=== PATIENT | female | born 1955 | race Caucasian/White ===

== ENCOUNTER 2018-05-17 13:59 | Emergency (ER) | payer BC ==
[~2018-05-17] VITALS: Ht 160 cm; Wt 73.5 kg
[~2018-05-17 13:59] MED LIST: ASP81EC PO; ATOR20TA PO; HYDR-3028; LORAPOW30; MEC25T PO; METOPROLOL; NAPR500T31; PANT1INJ3; SERT-275; [UNRECOGNIZED DRUG - CODE]
[2018-05-17 15:32] LABS: Basophils # (auto) 0 uL; Basophils % (auto) 0.4 % (0.0-2.0); Eosinophils # (auto) 0.2 uL; Eosinophils % (auto) 2.7 % (0.0-7.0); Hematocrit 48.6 % (36.0-46.0); Hemoglobin 16.3 g/dL (12.2-16.2); Lymphocytes # (auto) 2.5 uL; Mean Corpuscular Hemoglobin 30.5 pg (28.0-32.0); Mean Corpuscular Hgb Conc. 33.5 g/dL (32.0-36.0); Mean Corpuscular Volume 91.1 fL (80.0-100.0); Monocytes # (auto) 0.7 uL; Monocytes % (auto) 9.2 % (0.0-12.0); Neutrophils # (auto) 4.4 uL; Neutrophils % (auto) 55.7 % (37.0-80.0); Nucleated Red Blood Cells % 0.1 %; Platelet Count (auto) 325 10^3/uL (140-450); Red Blood Cells 5.33 10^6/uL (4.0-5.20); Red Cell Distribution Width 13.2 % (11.8-14.3); White Blood Cell 7.9 10^3/uL (4.4-10.8)
[2018-05-17 15:40] LABS: Albumin 4.1 g/dL (3.4-5.0); Anion Gap 6 (5-15); Blood Urea Nitrogen 11 mg/dL (7-18); Carbon Dioxide 29 mmol/L (21-32); Chloride 101 mmol/L (98-107); Glucose 92 mg/dL (74-106); Potassium 4.6 mmol/L (3.5-5.1); Sodium 136 mmol/L (136-145)
[2018-05-17 15:42] LABS: Urine Bacteria NONE SEEN /hpf (None Seen); Urine Blood Negative /uL (Negative); Urine Specific Gravity 1.005 (1.001-1.035); Urine WBC 4 /hpf (0 - 5)
[2018-05-17 15:45] LABS: Alanine Aminotransferase 28 U/L (13-56); Alkaline Phosphatase 93 U/L (45-117); Aspartate Aminotransferase 14 U/L (15-37); BUN/Creatinine Ratio 15.1; Bilirubin, Total 0.3 mg/dL (0.2-1.0); GFR African American 103 mL/min; GFR Non-African American 85 mL/min; Total Protein 7.7 g/dL (6.4-8.2)
[2018-05-17] MEDS ORDERED: MECLIZINE HCL 25 MG TAB PO ONE (17:45)
[2018-05-17 18:09] VITALS: BP 130/70
[2018-05-17] MEDS ORDERED: cefTRIAXone 1GM/50ML D5W 50 ML IV ONE (18:45)
[2018-05-17] MEDS ORDERED: HYDROcodone-ACET 5/325MG TAB PO ONE (18:45)
== END 2018-05-17 19:18 | disposition home or self-care (01) ==
LOC: ER 13:59
DX: N39.0 Urinary tract infection, site not specified (principal); G89.29 Other chronic pain; E78.5 Hyperlipidemia, unspecified; Z90.710 Acquired absence of both cervix and uterus
CPT/HCPCS: 36415; 80053; 81001; 84484; 85025; 93005; 99285; J0696; J8597

== ENCOUNTER 2019-05-12 11:15 | Emergency (ER) | payer MEDICARE ==
[~2019-05-12] VITALS: Ht 160 cm; Wt 74.8 kg
[2019-05-12] MEDS ORDERED: MECLIZINE HCL 25 MG TAB PO ONE (11:45)
[2019-05-12] MEDS ORDERED: SODIUM CHLORIDE 0.9% 500 ML IV ONE (11:45)
[2019-05-12 12:08] LABS: Urine Amorphous Crystal FEW /hpf (None Seen); Urine Bacteria NONE SEEN /hpf (None Seen); Urine Blood Negative /uL (Negative); Urine Specific Gravity 1.016 (1.001-1.035); Urine WBC 3 /hpf (0 - 5)
[2019-05-12 13:04] LABS: Basophils # (auto) 0 uL; Basophils % (auto) 0.8 % (0.0-2.0); Eosinophils # (auto) 0.2 uL; Eosinophils % (auto) 3.1 % (0.0-7.0); Hematocrit 46.3 % (36.0-46.0); Hemoglobin 15.4 g/dL (12.2-16.2); Lymphocytes # (auto) 2.4 uL; Lymphocytes % (auto) 41.7 % (10.0-50.0); Mean Corpuscular Hemoglobin 31.3 pg (28.0-32.0); Mean Corpuscular Hgb Conc. 33.3 g/dL (32.0-36.0); Mean Corpuscular Volume 94.2 fL (80.0-100.0); Monocytes # (auto) 0.5 uL; Neutrophils # (auto) 2.6 uL; Neutrophils % (auto) 46.4 % (37.0-80.0); Nucleated Red Blood Cells % 0.1 %; Platelet Count (auto) 235 10^3/uL (140-450); Red Blood Cells 4.92 10^6/uL (4.0-5.20); Red Cell Distribution Width 12.9 % (11.8-14.3); White Blood Cell 5.7 10^3/uL (4.4-10.8)
[2019-05-12 13:25] LABS: Alanine Aminotransferase 35 U/L (13-56); Albumin 3.9 g/dL (3.4-5.0); Anion Gap 6 (5-15); Aspartate Aminotransferase 22 U/L (15-37); Blood Urea Nitrogen 14 mg/dL (7-18); Calcium 8.7 mg/dL (8.5-10.1); Carbon Dioxide 29 mmol/L (21-32); Chloride 105 mmol/L (98-107); Glucose 93 mg/dL (74-106); Potassium 3.7 mmol/L (3.5-5.1); Sodium 140 mmol/L (136-145)
[2019-05-12 13:30] LABS: Alkaline Phosphatase 75 U/L (45-117); BUN/Creatinine Ratio 20.9; Bilirubin, Total 0.3 mg/dL (0.2-1.0); GFR African American 114 mL/min; GFR Non-African American 94 mL/min; Total Protein 7.3 g/dL (6.4-8.2)
[2019-05-12 14:03] VITALS: BP 140/72
== END 2019-05-12 14:22 | disposition home or self-care (01) ==
LOC: ER 11:22
DX: S09.90XA Unspecified injury of head, initial encounter (principal); R42 Dizziness and giddiness; E78.5 Hyperlipidemia, unspecified; I10 Essential (primary) hypertension; F12.90 Cannabis use, unspecified, uncomplicated; Z88.1 Allergy status to other antibiotic agents; Z88.2 Allergy status to sulfonamides; Z79.82 Long term (current) use of aspirin; Z79.899 Other long term (current) drug therapy; Z86.73 Personal history of transient ischemic attack (TIA), and cerebral infarction without residual deficits; Z90.710 Acquired absence of both cervix and uterus; W22.8XXA Striking against or struck by other objects, initial encounter; Y93.89 Activity, other specified; Y99.8 Other external cause status; Y92.89 Other specified places as the place of occurrence of the external cause
CPT/HCPCS: 36415; 70450; 80053; 81001; 84484; 85025; 93005; 94761; 96360; 99284; J7040; J8597

== ENCOUNTER 2020-05-06 10:37 | Inpatient (IN) | payer MEDICARE ==
[~2020-05-06] VITALS: Ht 162.6 cm; Wt 80.0 kg
[~2020-05-06 10:37] MED LIST changes: -ASP81EC PO; +ASPI-394 PO
[2020-05-06] MEDS ORDERED: SODIUM CHLORIDE 0.9% 500 ML IVB ONE (11:00)
[2020-05-06 11:36] LABS: Basophils # (auto) 0 10 ^3/uL (0-0.2); Basophils % (auto) 0.6 % (0.0-2.0); Eosinophils # (auto) 0.2 10 ^3/uL (0-0.8); Eosinophils % (auto) 2.8 % (0.0-7.0); Hematocrit 46.5 % (36.0-46.0); Hemoglobin 15.5 g/dL (12.2-16.2); Lymphocytes # (auto) 1.7 10 ^3/uL (0.4-5.4); Lymphocytes % (auto) 26.6 % (10.0-50.0); Mean Corpuscular Hemoglobin 31.1 pg (28.0-32.0); Mean Corpuscular Hgb Conc. 33.3 g/dL (32.0-36.0); Mean Corpuscular Volume 93.3 fL (80.0-100.0); Monocytes # (auto) 0.4 10 ^3/uL (0-1.3); Monocytes % (auto) 5.8 % (0.0-12.0); Neutrophils # (auto) 4.1 10 ^3/uL (1.6-8.6); Neutrophils % (auto) 64.2 % (37.0-80.0); Nucleated Red Blood Cells % 0.1 %; Platelet Count (auto) 212 10^3/uL (140-450); Red Blood Cells 4.98 10^6/uL (4.0-5.20); Red Cell Distribution Width 13.8 % (11.8-14.3); White Blood Cell 6.4 10^3/uL (4.4-10.8)
[2020-05-06 11:44] LABS: Alanine Aminotransferase 47 U/L (13-56); Albumin 3.8 g/dL (3.4-5.0); Anion Gap 6 (5-15); Blood Alcohol < 3.0 mg/dL (0-5); Blood Urea Nitrogen 22 mg/dL (7-18); Calcium 8.5 mg/dL (8.5-10.1); Carbon Dioxide 24 mmol/L (21-32); Chloride 107 mmol/L (98-107); Glucose 128 mg/dL (74-106); Potassium 3.7 mmol/L (3.5-5.1); Sodium 137 mmol/L (136-145)
[2020-05-06 11:46] LABS: Alkaline Phosphatase 66 U/L (45-117); Aspartate Aminotransferase 30 U/L (15-37); BUN/Creatinine Ratio 31.9; Bilirubin, Total 0.4 mg/dL (0.2-1.0); GFR African American 109 mL/min; GFR Non-African American 90 mL/min; Total Protein 6.8 g/dL (6.4-8.2)
[2020-05-06 11:53] LABS: Acetaminophen 35.4 ug/mL (10-30); Salicylate < 1.7 mg/dL (2.8-20.0)
[2020-05-06] MEDS ORDERED: MORPHINE SULF INJ 2 MG/ML SYRINGE 1ML IV PRN (12:45)
[2020-05-06] MEDS ORDERED: ACETYLCYSTEINE PO FOR APAP TOX 200 MG/ML ML PO ONE (12:45)
[2020-05-06] MEDS ORDERED: NITROGLYCERIN 0.4 MG SL TAB SL PRN (12:45)
[2020-05-06] MEDS: SODIUM CHLORIDE 0.9% 1,000 ML IV SCH ×2 (13:21→22:24)
[2020-05-06 14:07] LABS: Alanine Aminotransferase 41 U/L (13-56); Albumin 3.5 g/dL (3.4-5.0); Bilirubin, Direct < 0.1 mg/dL (0-0.2)
[2020-05-06 14:10] LABS: Alkaline Phosphatase 61 U/L (45-117); Aspartate Aminotransferase 25 U/L (15-37); Bilirubin, Total 0.3 mg/dL (0.2-1.0); Total Protein 6.3 g/dL (6.4-8.2)
[2020-05-06 17:04] VITALS: BP 148/79
[2020-05-06 17:16] VITALS: BP 148/79
[2020-05-06 17:23] VITALS: BP 148/79
[2020-05-06] MEDS ORDERED: PRAV20TA3 PO (17:24)
[2020-05-06] MEDS ORDERED: HYDR-4902 PO (17:24)
[2020-05-06] MEDS ORDERED: OXYB5TAB61 PO (17:24)
[2020-05-06] MEDS ORDERED: METO25TA36 PO (17:24)
[2020-05-06] MEDS ORDERED: SERT-376 PO (17:24)
--- NOTE | 2020-05-06 18:12 | NUR ---
Telemetry admit from ER EVAN LOZANO admitted to Telemetry unit after SBAR received. Patient oriented to Peter Noyola RN primary RN, unit, room, bed, and unit policies regarding patient care and visiting hours. Patient now on continuous telemetry monitoring, tele box # 34 and telemetry reading on arrival to unit is sinus rhythm 81.Sitter at bedside. Patient placed on bedside oxygen, weighed by bedscale and encouraged to call if they need something. All questions and concerns addressed. Bed locked in the lowest position, will continue for monitor.
[2020-05-06] MEDS: ACETYLCYSTEINE PO FOR APAP TOX 200 MG/ML ML PO SCH ×2 (18:53→22:00)
--- NOTE | 2020-05-06 20:00 | NUR ---
Opening Shift Note Assumed care of patient. Pt is A/O x4. No S/S of distress/SOB or pain at this time. Pt is on 4L nasal cannula with even and unlabored respirations. Sitter is at bedside for safety. Instructed on POC and to call for assist PRN. Bed locked, in lowest position, call light within reach, side rails up x2. Will continue to monitor for changes Q1hr and PRN.
[2020-05-06 22:00] VITALS: BP 120/78
--- NOTE | 2020-05-06 22:06 | NUR ---
Mucomyst held Acetaminophen level 4.7 @1805
[2020-05-07] MEDS: ACETYLCYSTEINE PO FOR APAP TOX 200 MG/ML ML PO SCH ×3 (02:00→10:00)
--- NOTE | 2020-05-07 02:00 | NUR ---
Hospitalist paged Pt has been vomiting and having nausea. New orders received
[2020-05-07] MEDS: ONDANSETRON HCL 4 MG/2 ML VIAL IV PRN ×3 (03:16→14:03)
[2020-05-07 05:00] VITALS: BP 154/74
[2020-05-07] MEDS: SODIUM CHLORIDE 0.9% 1,000 ML IV SCH (05:16)
--- NOTE | 2020-05-07 05:39 | NUR ---
Called Marcy in the lab inquiring about in house covid result. No swab was ever taken to the lab. Swab sent to [facility] and informed primary ISAEL Mckeon who will swab patient and walk to the lab.
--- NOTE | 2020-05-07 06:02 | NUR ---
In house COVID swab obtained. Walked up to lab
[2020-05-07 06:59] LABS: Basophils # (auto) 0 10 ^3/uL (0-0.2); Basophils % (auto) 0.3 % (0.0-2.0); Eosinophils # (auto) 0.1 10 ^3/uL (0-0.8); Eosinophils % (auto) 0.8 % (0.0-7.0); Hematocrit 42.5 % (36.0-46.0); Hemoglobin 14.1 g/dL (12.2-16.2); Lymphocytes # (auto) 1.1 10 ^3/uL (0.4-5.4); Mean Corpuscular Hemoglobin 30.9 pg (28.0-32.0); Mean Corpuscular Hgb Conc. 33.2 g/dL (32.0-36.0); Monocytes # (auto) 0.4 10 ^3/uL (0-1.3); Monocytes % (auto) 4.2 % (0.0-12.0); Neutrophils # (auto) 7.1 10 ^3/uL (1.6-8.6); Neutrophils % (auto) 81.7 % (37.0-80.0); Nucleated Red Blood Cells % 0.1 %; Platelet Count (auto) 197 10^3/uL (140-450); Red Blood Cells 4.57 10^6/uL (4.0-5.20); Red Cell Distribution Width 13.2 % (11.8-14.3); White Blood Cell 8.7 10^3/uL (4.4-10.8)
[2020-05-07 07:13] LABS: Albumin 3.6 g/dL (3.4-5.0); Calcium 8.3 mg/dL (8.5-10.1); Potassium 3.8 mmol/L (3.5-5.1)
[2020-05-07 07:15] LABS: BUN/Creatinine Ratio 29.5
[2020-05-07 07:18] LABS: Bilirubin, Total 0.5 mg/dL (0.2-1.0); Total Protein 6.6 g/dL (6.4-8.2)
[2020-05-07 09:00] VITALS: BP 141/65
[2020-05-07] MEDS ORDERED: ENOXAPARIN SOD 40 MG/0.4 ML SYRINGE SC SCH (10:00)
[2020-05-07 13:00] VITALS: BP 142/74
[2020-05-07] MEDS ORDERED: SERTRALINE HCL 50 MG TAB PO ONE (13:00)
[2020-05-07] MEDS: traMADol HCL 50 MG TAB PO PRN ×2 (14:03→20:17)
[2020-05-07 17:00] VITALS: BP 138/69
--- NOTE | 2020-05-07 18:30 | NUR ---
PT STATED SHE DID NOT WANT TO SET UP A PASSWORD, BUT THAT SHE DID WANT HER SON LIZZIE (ONLY) TO BE ABLE TO CALL FOR UPDATES. LIZZIE LOZANO .
[2020-05-07 19:00] LABS: Urine Bacteria NONE SEEN /hpf (None Seen); Urine Blood Negative /uL (Negative); Urine Specific Gravity 1.004 (1.001-1.035); Urine WBC 1 /hpf (0 - 5)
[2020-05-07 19:08] LABS: Amphetamine Screen, Urine NEGATIVE (NEGATIVE); Barbiturate Scree,Urine NEGATIVE (NEGATIVE); Benzodiazephine Screen, Urine NEGATIVE (NEGATIVE); Cannabinoid Screen, Urine POSITIVE (NEGATIVE); Cocaine Screen, Urine NEGATIVE (NEGATIVE); Opiate Scree,Urine NEGATIVE (NEGATIVE); Phencyclidine Screen, Urine NEGATIVE (NEGATIVE)
[2020-05-07] MEDS ORDERED: PANTOPRAZOLE 40 MG TAB PO ONE (21:45)
[2020-05-07 22:00] VITALS: BP 141/81
--- NOTE | 2020-05-07 23:43 | NUR ---
SITTER AT BEDSIDE R/T SI, OD, AND ALOC UPON ADMISSION. Addendum: 05/07/20 at 2344 by LAUREN NEIL RN Amended: Links added.
[2020-05-08 05:00] VITALS: BP 139/78
--- NOTE | 2020-05-08 07:07 | NUR ---
CALLED TELE PSYCH R/T NO REPORT HAS BEEN RECEIVED YET. SPOKE WITH YARON AND HE IS FAXING REPORT NOW.
--- NOTE | 2020-05-08 07:30 | NUR ---
FAXED REPORT RECEIVED AND 5150 HOLD HAS BEEN RECOMMENDED. REPORT GIVEN TO LIZA MOYER RN .
[2020-05-08] MEDS: PANTOPRAZOLE 40 MG TAB PO SCH (08:53)
[2020-05-08] MEDS: traMADol HCL 50 MG TAB PO PRN ×3 (08:54→21:35)
[2020-05-08] MEDS: SERTRALINE HCL 50 MG TAB PO SCH (08:54)
[2020-05-08 09:00] VITALS: BP 148/74
--- NOTE | 2020-05-08 11:36 | NUR ---
md newman rounded on patient made aware of tele psych recommending 5150 hold, general house worker also aware
[2020-05-08 13:00] VITALS: BP 140/80
[2020-05-08] MEDS: LACTULOSE 20Gm/30ML SOLN PO PRN ×2 (16:17→21:35)
[2020-05-08 17:00] VITALS: BP 144/82
--- NOTE | 2020-05-08 17:42 | NUR ---
PAGED MD BROWN REGARDING CONTINUATION OF HOME MEDS AWAITING CALL BACK
--- NOTE | 2020-05-08 17:49 | NUR ---
SPOKE WITH MD BROWN REVIEWED HOME MEDICATIONS LISTED WITH HE CONTINUED METOPROLOL, PER PT REQUEST, ALSO INQUIRED WHEN 5150 WILL BE SIGNED I INFORMED HIM PER [facility] NEUROPSYCHOLOGIST SOMEONE WILL BE HERE TONIGHT TO SIGN IT
[2020-05-08] MEDS ORDERED: METOPROLOL SUCCINATE XL 50 MG TAB PO ONE (18:00)
[2020-05-08 21:02] VITALS: BP 136/60
[2020-05-09 05:03] VITALS: BP 130/73
[2020-05-09 08:32] VITALS: BP 137/71
[2020-05-09] MEDS: PANTOPRAZOLE 40 MG TAB PO SCH (10:00)
[2020-05-09] MEDS: SERTRALINE HCL 50 MG TAB PO SCH (10:00)
[2020-05-09] MEDS: METOPROLOL SUCCINATE XL 50 MG TAB PO SCH (10:00)
[2020-05-09 12:32] VITALS: BP 123/78
--- NOTE | 2020-05-09 12:34 | NUR ---
Nutrition Assessment Notes please see attached link for complete assessment Est energy needs [id number] kcal (23-25 kcal/kg ABW) Est protein needs: 67-73g (1-1.1g/kg ABW) WIll reassess prn. Addendum: 05/09/20 at [address] Amended: Links added.
[2020-05-09] MEDS: traMADol HCL 50 MG TAB PO PRN ×2 (12:38→20:53)
[2020-05-09 16:50] VITALS: BP 131/79
--- NOTE | 2020-05-09 19:15 | NUR ---
Opening Shift Note Assumed care of patient from Lu, awake and alert. No S/S of distress/SOB or pain. Instructed on POC and to call for assist PRN, will continue to monitor for changes Q1hr and PRN.
[2020-05-09 22:00] VITALS: BP 155/87
[2020-05-10] MEDS: traMADol HCL 50 MG TAB PO PRN (02:48)
[2020-05-10 04:56] VITALS: BP 128/68
[2020-05-10 08:30] VITALS: BP 150/74
[2020-05-10] MEDS: PANTOPRAZOLE 40 MG TAB PO SCH (09:43)
[2020-05-10] MEDS: METOPROLOL SUCCINATE XL 50 MG TAB PO SCH (09:43)
[2020-05-10] MEDS: SERTRALINE HCL 50 MG TAB PO SCH (09:43)
--- NOTE | 2020-05-10 11:05 | NUR ---
assessment Patient is a 64 year old female who is alert and oriented. Patients cognitive abilities are intact. Prior to admission patient lived home alone and functioned independently. Patient has a consult for dc planning and drug od. Patient informed me she is going through a bad divorce and has lots of pain issues. Patient informed me she felt tired and was tired of dealing with everything that was on her plate. Patient informed me at that time she took a handful of [place] trying to make everything go away. Patient informed me she regrets taking the pills and does not feel like she wants to . I informed patient she has a ss consult for psych placement. Patient wants to leave AMA. I informed patient if she leave we will call SO and report she left the hospital against medical advise. Patient informed me she called her chalk molding machine operator and was told we cannot hold her. I informed her that was true, but we will still call SO. Patient agreed. I provided patient with resources for therapist in the area, Crisis center and behavioral health. I also provided patient with [facility] resource. Patient accepted all resources and informed me she wants to do better. I informed patient she has a right to speak to a social media director regarding all care. I informed patient she has a right to participate in any and all discharge planning. Patient does not have a POA and advanced directive. I have offered patient information on POA and advanced directives. I informed the patient the advantages and benefits of having an Advanced Directive. Patient verbalized understanding and agreed to discharge plan. Addendum: 05/10/20 at 1530 by Nini FROST Amended: Links added.
--- NOTE | 2020-05-10 11:55 | NUR ---
Left AMA Patient left AMA. She was taken to main entrance in a wheelchair where she left in a private vehicle with all personal belongings. ID bands were removed. IV was removed intact, no problems.
--- NOTE | 2020-05-10 12:25 | NUR ---
Contacted senior construction manager dept per protocol and notified them of the patient leaving AMA. No address on file, only a PO box. They said they would look it up.
--- NOTE | 2020-05-11 12:00 | NUR ---
Pt wants to leave AMA She spoke with Nini Gary in who said she would provide the patient with information and that she has very good insurance. She answered all questions and talked at length with the patient. Dr. Arias also went in and saw the patient and talked with her. After this, the patient decided she still wants to leave AMA and said she wants to get help and get on a new antidepressant. She said she no longer feels like committing suicide and can hardly believe she did it in the first place. She said she felt overwhelmed by going through a divorce and everyone taking her 's side and also dealing with pain and medical issues on top of it. This nurse was informed that we cannot hold the patient here at the hospital as we are not a psych hospital. Addendum: 05/11/20 at 1405 by CHRIS PADILLA RN Wrong time entered. This was originally entered on the wrong patient by accident. This note should have been timed for 1100.
== END 2020-05-10 11:50 | disposition left against medical advice (07) | DRG 918 ==
LOC: EDBD 10:37 → ER 10:37 → TELE 10:38 → TELE-CENTR 17:06 → CENTRAL 05-07 17:05
PROVIDERS: ADMIT Internal Medicine; ATTEND Internal Medicine
DX: T39.1X2A Poisoning by 4-Aminophenol derivatives, intentional self-harm, initial encounter (principal); T43.222A Poisoning by selective serotonin reuptake inhibitors, intentional self-harm, initial encounter; T40.2X2A Poisoning by other opioids, intentional self-harm, initial encounter; F32.9 Major depressive disorder, single episode, unspecified; E78.5 Hyperlipidemia, unspecified; E66.9 Obesity, unspecified; I10 Essential (primary) hypertension; Z53.29 Procedure and treatment not carried out because of patient's decision for other reasons; Z20.828 Contact with and (suspected) exposure to other viral communicable diseases; S42.002A Fracture of unspecified part of left clavicle, initial encounter for closed fracture; Z86.73 Personal history of transient ischemic attack (TIA), and cerebral infarction without residual deficits; Z68.30 Body mass index [BMI] 30.0-30.9, adult; Z88.1 Allergy status to other antibiotic agents; Z88.2 Allergy status to sulfonamides; Z88.8 Allergy status to other drugs, medicaments and biological substances; X83.8XXA Intentional self-harm by other specified means, initial encounter; Y93.89 Activity, other specified; Y92.89 Other specified places as the place of occurrence of the external cause; Y99.8 Other external cause status; Z80.51 Family history of malignant neoplasm of kidney; Z90.710 Acquired absence of both cervix and uterus; Z85.9 Personal history of malignant neoplasm, unspecified; F12.90 Cannabis use, unspecified, uncomplicated
CPT/HCPCS: 36415; 71045; 80053; 80076; 80307; 80320; 80329; 81001; 85025; 87426; 93005; 96361; 96374; 99291; G0378; J2405

== ENCOUNTER 2020-12-31 22:11 | Emergency (ER) | payer MEDICARE ==
[~2020-12-31] VITALS: Ht 162.6 cm; Wt 77.1 kg
[~2020-12-31 22:11] MED LIST changes: -ATOR20TA PO; -HYDR-3028; +HYDR-4902 PO; -LORAPOW30; +METO25TA36 PO; -METOPROLOL; -NAPR500T31; +OXYB5TAB61 PO; -PANT1INJ3; +PRAV20TA3 PO; -SERT-275; +SERT-376 PO; -[UNRECOGNIZED DRUG - CODE]
[2020-12-31 22:27] VITALS: BP 138/74
== END 2020-12-31 23:22 | disposition left against medical advice (07) ==
LOC: ER 22:11 → EDBD 22:11 → ER 23:22
DX: K62.5 Hemorrhage of anus and rectum (principal); Z53.21 Procedure and treatment not carried out due to patient leaving prior to being seen by health care provider

== ENCOUNTER 2023-01-30 17:54 | Emergency (ER) | payer MEDICARE ==
[~2023-01-30] VITALS: Ht 162.6 cm; Wt 75.3 kg
[~2023-01-30 17:54] MED LIST changes: +OXYB5TAB10 PO; -OXYB5TAB61 PO
[2023-01-30 18:56] LABS: Basophils # (auto) 0.1 10 ^3/uL (0-0.2); Basophils % (auto) 0.9 % (0.0-2.0); Eosinophils % (auto) 13.3 % (0.0-7.0); Hemoglobin 14.5 g/dL (12.2-16.2); Lymphocytes # (auto) 2.1 10 ^3/uL (0.4-5.4); Lymphocytes % (auto) 26.8 % (10.0-50.0); Mean Corpuscular Hgb Conc. 33.7 g/dL (32.0-36.0); Mean Corpuscular Volume 95.1 fL (80.0-100.0); Monocytes # (auto) 0.6 10 ^3/uL (0-1.3); Monocytes % (auto) 8.3 % (0.0-12.0); Neutrophils # (auto) 3.9 10 ^3/uL (1.6-8.6); Neutrophils % (auto) 50.7 % (37.0-80.0); Red Blood Cells 4.52 10^6/uL (4.0-5.20); Red Cell Distribution Width 12.7 % (11.8-14.3); White Blood Cell 7.7 10^3/uL (4.4-10.8)
[2023-01-30 19:13] LABS: Albumin 3.6 g/dL (3.4-5.0); Calcium 9.3 mg/dL (8.5-10.1); Potassium 4.2 mmol/L (3.5-5.1)
[2023-01-30 19:16] LABS: BUN/Creatinine Ratio 20.5 (10.0-20.0)
[2023-01-30 19:19] LABS: Bilirubin, Total 0.3 mg/dL (0.2-1.0)
[2023-01-30] MEDS ORDERED: ALBUTEROL SULF 2.5 MG/0.5ML(0.5%) NEB SOLN NEB ONE ×2 (20:00→21:30)
[2023-01-30] MEDS ORDERED: DexAMETHasone SOD PHOS 10MG/1ML VIAL INJ IM ONE (20:00)
[2023-01-30] MEDS ORDERED: IPRATROPIUM BROM 0.5 MG/2.5ML INH SOL NEB ONE ×2 (20:00→21:30)
[2023-01-30] MEDS ORDERED: IPRATROPIUM BROM 0.5 MG/2.5ML INH SOL ONE (20:08)
[2023-01-30] MEDS ORDERED: ALBUTEROL SULF 2.5 MG/0.5ML(0.5%) NEB SOLN ONE (20:08)
[2023-01-30 21:10] LABS: Urine Bacteria NONE SEEN /hpf (None Seen); Urine Blood Negative /uL (Negative); Urine Mucus FEW (None Seen); Urine Specific Gravity 1.026 (1.001-1.035); Urine WBC 5 /hpf (0 - 5)
[2023-01-30] MEDS ORDERED: DOXYCYCLINE 100MG/250ML 250 ML IV ONE (21:15)
[2023-01-30] MEDS ORDERED: DexAMETHasone SOD PHOS 10MG/1ML VIAL INJ IV ONE (21:15)
[2023-01-30] MEDS ORDERED: BUDESONIDE (INHALATION) 0.5 MG/2 ML NEB NEB ONE (21:30)
[2023-01-30] MEDS ORDERED: ALBUAER3 IN (23:43)
[2023-01-30] MEDS ORDERED: METH4PAK PO (23:43)
[2023-01-30] MEDS ORDERED: DOXY1CAP57 PO (23:43)
[2023-01-31 00:10] VITALS: BP 133/74
== END 2023-01-31 00:44 | disposition home or self-care (01) ==
LOC: ER 17:54
DX: J20.9 Acute bronchitis, unspecified (principal); J18.9 Pneumonia, unspecified organism; E78.5 Hyperlipidemia, unspecified; I10 Essential (primary) hypertension; F12.10 Cannabis abuse, uncomplicated; Z90.710 Acquired absence of both cervix and uterus; Z86.73 Personal history of transient ischemic attack (TIA), and cerebral infarction without residual deficits
CPT/HCPCS: 36415; 71046; 80053; 81001; 85025; 93005; 94640; 96365; 96375; 99285; J1100; J3490; J7644

== ENCOUNTER 2023-02-14 11:13 | Inpatient (IN) | payer MEDICARE ==
[~2023-02-14] VITALS: Ht 162.6 cm; Wt 84.6 kg
[~2023-02-14 11:13] MED LIST changes: +ALBUAER3 IN; +DOXY1CAP57 PO; +METH4PAK PO
[2023-02-14] MEDS ORDERED: ALBUTEROL SULF 2.5 MG/0.5ML(0.5%) NEB SOLN NEB ONE (11:45)
[2023-02-14] MEDS ORDERED: methylPREDNISolone SOD SUCC 40 MG/ML VL IV ONE (11:45)
[2023-02-14] MEDS ORDERED: IPRATROPIUM BROM 0.5 MG/2.5ML INH SOL NEB ONE (11:45)
[2023-02-14 12:19] LABS: Basophils # (auto) 0 10 ^3/uL (0-0.2); Basophils % (auto) 0.6 % (0.0-2.0); Eosinophils # (auto) 0.5 10 ^3/uL (0-0.8); Eosinophils % (auto) 6.8 % (0.0-7.0); Hematocrit 44.7 % (36.0-46.0); Hemoglobin 14.8 g/dL (12.2-16.2); Lymphocytes % (auto) 28.3 % (10.0-50.0); Mean Corpuscular Hemoglobin 31.5 pg (28.0-32.0); Mean Corpuscular Volume 95.4 fL (80.0-100.0); Monocytes # (auto) 0.4 10 ^3/uL (0-1.3); Monocytes % (auto) 6.3 % (0.0-12.0); Nucleated Red Blood Cells % 0.1 %; Red Blood Cells 4.69 10^6/uL (4.0-5.20); Red Cell Distribution Width 12.8 % (11.8-14.3); White Blood Cell 6.9 10^3/uL (4.4-10.8)
[2023-02-14 12:27] LABS: Albumin 3.9 g/dL (3.4-5.0); Calcium 9.2 mg/dL (8.5-10.1); Potassium 4.4 mmol/L (3.5-5.1)
[2023-02-14 12:31] LABS: BUN/Creatinine Ratio 18.6 (10.0-20.0); Bilirubin, Total 0.4 mg/dL (0.2-1.0); Total Protein 6.9 g/dL (6.4-8.2)
[2023-02-14 13:08] LABS: Urine Bacteria NONE SEEN /hpf (None Seen); Urine Blood Negative /uL (Negative); Urine Specific Gravity 1.004 (1.001-1.035); Urine WBC 1 /hpf (0 - 5)
[2023-02-14] MEDS ORDERED: ALBUTEROL SULF 2.5 MG/0.5ML(0.5%) NEB SOLN NEB PRN (15:45)
[2023-02-14 16:13] VITALS: BP 152/82; PULSE 80; RESP 20; O2SAT 92
[2023-02-14] MEDS: IPRATROPIUM BROM 0.5 MG/2.5ML INH SOL NEB SCH ×2 (18:00→22:38)
[2023-02-14] MEDS: ALBUTEROL SULF 2.5 MG/0.5ML(0.5%) NEB SOLN NEB SCH ×2 (18:00→22:38)
[2023-02-14] MEDS ORDERED: OXYBUTYNIN CHL 5 MG TAB PO SCH (18:00)
[2023-02-14 21:19] VITALS: PULSE 94; RESP 20; O2SAT 94
[2023-02-14] MEDS: OXYBUTYNIN CHL 5 MG TAB PO SCH (21:22)
[2023-02-14] MEDS: PRAVASTATIN SODIUM 20 MG TAB PO SCH (21:25)
[2023-02-14] MEDS: MECLIZINE HCL 25 MG TAB PO SCH (21:25)
[2023-02-14] MEDS: methylPREDNISolone SOD SUCC 40 MG/ML VL IV SCH (21:25)
[2023-02-14 22:20] VITALS: PULSE 91; RESP 18; O2SAT 93
[2023-02-14 22:30] VITALS: PULSE 86; RESP 18; O2SAT 99
[2023-02-15] VITALS (17 sets, daily range): BP systolic 108–149; BP diastolic 63–74; PULSE 71–99; RESP 16–20; TEMP 97.9–98.4; O2SAT 92–100
[2023-02-15] MEDS: SODIUM CHLORIDE 0.9% 1,000 ML IV SCH ×3 (00:55→15:21)
[2023-02-15] MEDS: ACETAMINOPHEN 325 MG TAB PO PRN ×2 (02:35→17:35)
[2023-02-15] MEDS: IPRATROPIUM BROM 0.5 MG/2.5ML INH SOL NEB SCH ×6 (02:40→23:19)
[2023-02-15] MEDS: ALBUTEROL SULF 2.5 MG/0.5ML(0.5%) NEB SOLN NEB SCH ×6 (02:40→23:19)
[2023-02-15] MEDS ORDERED: CITA10TA5 PO (03:06)
[2023-02-15] MEDS ORDERED: ACET500T58 PO (03:06)
[2023-02-15] MEDS ORDERED: ATOR10TA52 PO (03:06)
[2023-02-15 05:55] LABS: Basophils # (auto) 0 10 ^3/uL (0-0.2); Basophils % (auto) 0.1 % (0.0-2.0); Eosinophils # (auto) 0 10 ^3/uL (0-0.8); Hematocrit 40.6 % (36.0-46.0); Hemoglobin 13.6 g/dL (12.2-16.2); Lymphocytes # (auto) 1.3 10 ^3/uL (0.4-5.4); Lymphocytes % (auto) 11.5 % (10.0-50.0); Mean Corpuscular Hemoglobin 32.2 pg (28.0-32.0); Mean Corpuscular Hgb Conc. 33.5 g/dL (32.0-36.0); Monocytes # (auto) 0.1 10 ^3/uL (0-1.3); Monocytes % (auto) 1.1 % (0.0-12.0); Neutrophils # (auto) 9.9 10 ^3/uL (1.6-8.6); Neutrophils % (auto) 87.3 % (37.0-80.0); Red Blood Cells 4.23 10^6/uL (4.0-5.20); Red Cell Distribution Width 12.8 % (11.8-14.3); White Blood Cell 11.3 10^3/uL (4.4-10.8)
[2023-02-15 06:09] LABS: Potassium 3.9 mmol/L (3.5-5.1)
[2023-02-15 06:18] LABS: Albumin 3.5 g/dL (3.4-5.0); Bilirubin, Total 0.3 mg/dL (0.2-1.0); Total Protein 6.3 g/dL (6.4-8.2)
[2023-02-15] MEDS: SERTRALINE HCL 50 MG TAB PO SCH (09:22)
[2023-02-15] MEDS: ASPirin-EC 81 mg tab PO SCH (09:22)
[2023-02-15] MEDS: methylPREDNISolone SOD SUCC 40 MG/ML VL IV SCH ×2 (09:22→21:42)
[2023-02-15] MEDS: MECLIZINE HCL 25 MG TAB PO SCH ×2 (09:22→21:41)
[2023-02-15] MEDS: OXYBUTYNIN CHL 5 MG TAB PO SCH ×2 (09:23→09:25)
[2023-02-15] MEDS: METOPROLOL SUCCINATE XL 50 MG TAB PO SCH (09:23)
[2023-02-15] MEDS: DOXYCYCLINE 100MG/250ML 250 ML IV SCH (17:29)
[2023-02-15] MEDS: PRAVASTATIN SODIUM 20 MG TAB PO SCH (21:41)
[2023-02-16] VITALS (18 sets, daily range): BP systolic 119–148; BP diastolic 70–80; PULSE 72–95; RESP 16–20; TEMP 97.8–98.5; O2SAT 89–100
[2023-02-16] MEDS: IPRATROPIUM BROM 0.5 MG/2.5ML INH SOL NEB SCH ×6 (01:46→22:55)
[2023-02-16] MEDS: ALBUTEROL SULF 2.5 MG/0.5ML(0.5%) NEB SOLN NEB SCH ×6 (01:46→22:55)
[2023-02-16] MEDS: DOXYCYCLINE 100MG/250ML 250 ML IV SCH ×2 (05:18→17:01)
[2023-02-16 06:22] LABS: Basophils # (auto) 0 10 ^3/uL (0-0.2); Basophils % (auto) 0.1 % (0.0-2.0); Eosinophils # (auto) 0 10 ^3/uL (0-0.8); Hematocrit 39.3 % (36.0-46.0); Hemoglobin 13.2 g/dL (12.2-16.2); Lymphocytes # (auto) 1.3 10 ^3/uL (0.4-5.4); Mean Corpuscular Hemoglobin 31.8 pg (28.0-32.0); Mean Corpuscular Hgb Conc. 33.5 g/dL (32.0-36.0); Monocytes # (auto) 0.4 10 ^3/uL (0-1.3); Monocytes % (auto) 2.9 % (0.0-12.0); Nucleated Red Blood Cells % 0.1 %; Red Blood Cells 4.14 10^6/uL (4.0-5.20); Red Cell Distribution Width 13.2 % (11.8-14.3); White Blood Cell 14.8 10^3/uL (4.4-10.8)
[2023-02-16 06:32] LABS: Albumin 3.3 g/dL (3.4-5.0); Calcium 8.7 mg/dL (8.5-10.1); Magnesium 2.8 mg/dL (1.6-2.6); Potassium 3.9 mmol/L (3.5-5.1)
[2023-02-16 06:35] LABS: BUN/Creatinine Ratio 22.5 (10.0-20.0); Bilirubin, Total 0.3 mg/dL (0.2-1.0); Total Protein 6.3 g/dL (6.4-8.2)
[2023-02-16] MEDS: ACETAMINOPHEN 325 MG TAB PO PRN ×2 (08:28→17:00)
[2023-02-16] MEDS ORDERED: FUROSEMIDE 20 MG TAB PO SCH (10:00)
[2023-02-16] MEDS: methylPREDNISolone SOD SUCC 40 MG/ML VL IV SCH ×2 (10:45→22:02)
[2023-02-16] MEDS: FUROSEMIDE 20 MG/2 ML VIAL IV SCH (10:45)
[2023-02-16] MEDS: SERTRALINE HCL 50 MG TAB PO SCH (10:46)
[2023-02-16] MEDS: ASPirin-EC 81 mg tab PO SCH (10:46)
[2023-02-16] MEDS: METOPROLOL SUCCINATE XL 50 MG TAB PO SCH (10:46)
[2023-02-16] MEDS: OXYBUTYNIN CHL 5 MG TAB PO SCH (10:46)
[2023-02-16] MEDS: MECLIZINE HCL 25 MG TAB PO SCH ×2 (10:47→22:02)
[2023-02-16] MEDS: PRAVASTATIN SODIUM 20 MG TAB PO SCH (22:02)
[2023-02-17] VITALS (18 sets, daily range): BP systolic 125–140; BP diastolic 66–92; PULSE 71–92; RESP 14–19; TEMP 97.5–98.7; O2SAT 92–98
[2023-02-17] MEDS: ALBUTEROL SULF 2.5 MG/0.5ML(0.5%) NEB SOLN NEB SCH ×6 (02:42→22:19)
[2023-02-17] MEDS: IPRATROPIUM BROM 0.5 MG/2.5ML INH SOL NEB SCH ×6 (02:42→22:19)
[2023-02-17] MEDS: ACETAMINOPHEN 325 MG TAB PO PRN ×2 (04:22→21:18)
[2023-02-17] MEDS: DOXYCYCLINE 100MG/250ML 250 ML IV SCH ×2 (06:12→17:30)
[2023-02-17 07:47] LABS: Basophils # (auto) 0 10 ^3/uL (0-0.2); Basophils % (auto) 0.1 % (0.0-2.0); Eosinophils # (auto) 0 10 ^3/uL (0-0.8); Hematocrit 43.1 % (36.0-46.0); Hemoglobin 14.4 g/dL (12.2-16.2); Lymphocytes # (auto) 1.4 10 ^3/uL (0.4-5.4); Lymphocytes % (auto) 12.1 % (10.0-50.0); Mean Corpuscular Hemoglobin 31.7 pg (28.0-32.0); Mean Corpuscular Hgb Conc. 33.3 g/dL (32.0-36.0); Mean Corpuscular Volume 95.2 fL (80.0-100.0); Monocytes # (auto) 0.5 10 ^3/uL (0-1.3); Monocytes % (auto) 4.3 % (0.0-12.0); Neutrophils # (auto) 9.7 10 ^3/uL (1.6-8.6); Neutrophils % (auto) 83.5 % (37.0-80.0); Red Blood Cells 4.53 10^6/uL (4.0-5.20); Red Cell Distribution Width 13.3 % (11.8-14.3); White Blood Cell 11.6 10^3/uL (4.4-10.8)
[2023-02-17 08:00] LABS: Albumin 3.5 g/dL (3.4-5.0); Calcium 8.9 mg/dL (8.5-10.1); Potassium 4.2 mmol/L (3.5-5.1)
[2023-02-17 08:04] LABS: BUN/Creatinine Ratio 22.4 (10.0-20.0); Bilirubin, Total 0.4 mg/dL (0.2-1.0); Total Protein 6.6 g/dL (6.4-8.2)
[2023-02-17] MEDS: OXYBUTYNIN CHL 5 MG TAB PO SCH (09:45)
[2023-02-17] MEDS: methylPREDNISolone SOD SUCC 40 MG/ML VL IV SCH ×2 (09:47→21:18)
[2023-02-17] MEDS: FUROSEMIDE 20 MG/2 ML VIAL IV SCH (09:47)
[2023-02-17] MEDS: MECLIZINE HCL 25 MG TAB PO SCH ×2 (09:47→21:17)
[2023-02-17] MEDS: ASPirin-EC 81 mg tab PO SCH (09:47)
[2023-02-17] MEDS: METOPROLOL SUCCINATE XL 50 MG TAB PO SCH (09:47)
[2023-02-17] MEDS: SERTRALINE HCL 50 MG TAB PO SCH (09:47)
[2023-02-17] MEDS ORDERED: METO-6 PO (13:20)
[2023-02-17] MEDS ORDERED: IPR002IS NEB (13:20)
[2023-02-17] MEDS ORDERED: PRED20TA2 PO (13:20)
[2023-02-17] MEDS ORDERED: FURO1TAB33 PO (13:20)
[2023-02-17] MEDS ORDERED: ALB5IS NEB (13:20)
[2023-02-17] MEDS ORDERED: ASPI-543 PO (13:20)
[2023-02-17] MEDS ORDERED: DOXY100C4 PO (13:20)
[2023-02-17] MEDS ORDERED: OXYB5TAB10 PO (13:20)
[2023-02-17] MEDS: PRAVASTATIN SODIUM 20 MG TAB PO SCH (21:17)
[2023-02-18] VITALS (8 sets, daily range): BP systolic 113–136; BP diastolic 59–91; PULSE 63–99; RESP 16–20; TEMP 97.7–97.8; O2SAT 91–99
[2023-02-18] MEDS: IPRATROPIUM BROM 0.5 MG/2.5ML INH SOL NEB SCH ×3 (01:58→10:00)
[2023-02-18] MEDS: ALBUTEROL SULF 2.5 MG/0.5ML(0.5%) NEB SOLN NEB SCH ×3 (01:58→10:00)
[2023-02-18] MEDS: ACETAMINOPHEN 325 MG TAB PO PRN (04:47)
[2023-02-18] MEDS: DOXYCYCLINE 100MG/250ML 250 ML IV SCH (04:59)
[2023-02-18] MEDS: OXYBUTYNIN CHL 5 MG TAB PO SCH (09:46)
[2023-02-18] MEDS: SERTRALINE HCL 50 MG TAB PO SCH (09:46)
[2023-02-18] MEDS: ASPirin-EC 81 mg tab PO SCH (09:46)
[2023-02-18] MEDS: MECLIZINE HCL 25 MG TAB PO SCH (09:46)
[2023-02-18] MEDS: METOPROLOL SUCCINATE XL 50 MG TAB PO SCH (09:47)
[2023-02-18] MEDS: methylPREDNISolone SOD SUCC 40 MG/ML VL IV SCH (09:49)
[2023-02-18] MEDS: FUROSEMIDE 20 MG/2 ML VIAL IV SCH (09:53)
== END 2023-02-18 15:30 | disposition home or self-care (01) | DRG 193 ==
LOC: ER 11:13 → OVERFLOW 15:41 → WEST WING 23:35
PROVIDERS: ADMIT Internal Medicine
DX: J18.0 Bronchopneumonia, unspecified organism (principal); I50.31 Acute diastolic (congestive) heart failure; J96.01 Acute respiratory failure with hypoxia; J98.11 Atelectasis; Z68.32 Body mass index [BMI] 32.0-32.9, adult; E66.9 Obesity, unspecified; F32.A Depression, unspecified; I11.0 Hypertensive heart disease with heart failure; E78.5 Hyperlipidemia, unspecified; I27.20 Pulmonary hypertension, unspecified; Z80.51 Family history of malignant neoplasm of kidney; Z86.73 Personal history of transient ischemic attack (TIA), and cerebral infarction without residual deficits; Z87.01 Personal history of pneumonia (recurrent); Z88.1 Allergy status to other antibiotic agents; Z90.710 Acquired absence of both cervix and uterus; Z88.2 Allergy status to sulfonamides; Z88.8 Allergy status to other drugs, medicaments and biological substances
CPT/HCPCS: 36415; 36600; 71045; 71250; 80053; 81001; 82805; 83036; 83605; 83735; 83880; 84439; 84443; 84484; 85025; 85379; 93005; 93306; 94640; 96374; G0378; J3490

== ENCOUNTER 2023-07-05 14:21 | Emergency (ER) | payer MEDICARE ==
[~2023-07-05] VITALS: Ht 162.6 cm; Wt 77.2 kg
[~2023-07-05 14:21] MED LIST changes: +ALB5IS NEB; -ALBUAER3 IN; -ASPI-394 PO; +ASPI-543 PO; +ATOR10TA52 PO; +CITA10TA5 PO; +DOXY100C4 PO; -DOXY1CAP57 PO; +FURO1TAB33 PO; -HYDR-4902 PO; +IPR002IS NEB; -MEC25T PO; -METH4PAK PO; +METO-6 PO; -METO25TA36 PO; -PRAV20TA3 PO; +PRED20TA2 PO; -SERT-376 PO
[2023-07-05] MEDS ORDERED: HYDROcodone-ACET 10/325MG TAB PO ONE (15:15)
[2023-07-05] MEDS ORDERED: ZOFR4T PO (15:35)
[2023-07-05] MEDS ORDERED: ACE3T PO (15:35)
[2023-07-05] MEDS ORDERED: MECL1TAB42 PO (15:35)
[2023-07-05 17:06] VITALS: BP 103/73; PULSE 55; RESP 16; O2SAT 95
== END 2023-07-05 17:11 | disposition home or self-care (01) ==
LOC: ER 14:21
DX: S06.0X0A Concussion without loss of consciousness, initial encounter (principal); I10 Essential (primary) hypertension; E78.5 Hyperlipidemia, unspecified; Z86.73 Personal history of transient ischemic attack (TIA), and cerebral infarction without residual deficits; Z90.710 Acquired absence of both cervix and uterus; Z79.82 Long term (current) use of aspirin; Z79.2 Long term (current) use of antibiotics; Z79.899 Other long term (current) drug therapy; Z88.1 Allergy status to other antibiotic agents; Z88.2 Allergy status to sulfonamides; W22.8XXA Striking against or struck by other objects, initial encounter; Y93.89 Activity, other specified; Y92.89 Other specified places as the place of occurrence of the external cause; Y99.8 Other external cause status
CPT/HCPCS: 70450; 72125

== ENCOUNTER 2024-02-01 07:49 | Inpatient (IN) | payer MEDICARE ==
[~2024-02-01] VITALS: Ht 162.6 cm; Wt 82.8 kg
[2024-02-01] VITALS (8 sets, daily range): BP systolic 138–152; BP diastolic 56–76; PULSE 54–66; RESP 10–18; TEMP 97.7–98.6; O2SAT 92–94
[~2024-02-01 07:49] MED LIST changes: +ACE3T PO; +MECL1TAB42 PO; -OXYB5TAB10 PO; +OXYB5TAB14 PO; +ZOFR4T PO
[2024-02-01 08:22] LABS: Basophils # (auto) 0 10 ^3/uL (0-0.2); Basophils % (auto) 0.4 % (0.0-2.0); Eosinophils # (auto) 0.2 10 ^3/uL (0-0.8); Eosinophils % (auto) 3.2 % (0.0-7.0); Hematocrit 50.7 % (36.0-46.0); Hemoglobin 16.9 g/dL (12.2-16.2); Lymphocytes # (auto) 1.9 10 ^3/uL (0.4-5.4); Lymphocytes % (auto) 35.1 % (10.0-50.0); Mean Corpuscular Hemoglobin 32.2 pg (28.0-32.0); Mean Corpuscular Hgb Conc. 33.2 g/dL (32.0-36.0); Mean Corpuscular Volume 96.8 fL (80.0-100.0); Monocytes # (auto) 0.3 10 ^3/uL (0-1.3); Monocytes % (auto) 5.8 % (0.0-12.0); Neutrophils % (auto) 55.5 % (37.0-80.0); Nucleated Red Blood Cells % 0.2 %; Red Blood Cells 5.24 10^6/uL (4.0-5.20); Red Cell Distribution Width 13.3 % (11.8-14.3); White Blood Cell 5.4 10^3/uL (4.4-10.8)
[2024-02-01] MEDS: ONDANSETRON HCL 4 MG/2 ML VIAL IV ONE (08:28)
[2024-02-01 08:39] LABS: Chloride 107 mmol/L (98-107); Sodium 138 mmol/L (136-145)
[2024-02-01 08:40] LABS: Anion Gap 8 (5-15); Calcium 9.7 mg/dL (8.5-10.1); Carbon Dioxide 23 mmol/L (20-30)
[2024-02-01 08:45] LABS: BUN/Creatinine Ratio 14.9 (10.0-20.0); Blood Urea Nitrogen 10 mg/dL (9-23); Glucose 104 mg/dL (74-106); Magnesium 2.2 mg/dL (1.6-2.6)
[2024-02-01 09:39] LABS: Urine Bacteria None Seen /hpf (None Seen); Urine WBC None Seen /hpf (0 - 5)
[2024-02-01 09:50] LABS: Urine Blood Negative /uL (Negative); Urine Clarity Clear (Clear); Urine Protein, UAD Negative (Negative); Urine Specific Gravity 1.005 (1.001-1.035); Urine Urobilinogen Normal (Negative)
[2024-02-01] MEDS: ACETAMINOPHEN 325 MG TAB PO ONE (09:51)
[2024-02-01 09:52] LABS: Urine Color STRAW (Yellow)
[2024-02-01] MEDS ORDERED: NITROGLYCERIN 0.4 MG SL TAB SL PRN (14:00)
[2024-02-01] MEDS ORDERED: MORPHINE SULFATE INJ 2 MG/ml SYRG IV PRN (14:00)
[2024-02-01] MEDS: SODIUM CHLORIDE 0.9% 1,000 ML IV SCH ×2 (15:31→17:15)
[2024-02-01] MEDS ORDERED: ATOR40TA52 PO (15:53)
[2024-02-01 16:09] LABS: Folate (Folic Acid) 39.2 ng/mL (>5.38)
[2024-02-01] MEDS: LORazepam 2MG/ML-1ML VIAL IV PRN (18:19)
[2024-02-01 20:05] LABS: Hematocrit 42.1 % (36.0-46.0); Hemoglobin 14.2 g/dL (12.2-16.2); Mean Corpuscular Hemoglobin 32.1 pg (28.0-32.0); Mean Corpuscular Hgb Conc. 33.7 g/dL (32.0-36.0); Mean Corpuscular Volume 95.2 fL (80.0-100.0); Red Blood Cells 4.42 10^6/uL (4.0-5.20); Red Cell Distribution Width 13.1 % (11.8-14.3); White Blood Cell 7.3 10^3/uL (4.4-10.8)
[2024-02-01] MEDS: ATORVASTATIN 20 MG TAB PO SCH (21:29)
[2024-02-01] MEDS: METOCLOPRAMIDE HCL 10 MG TAB PO SCH (21:29)
[2024-02-02 01:00] VITALS: BP 140/63; PULSE 65; RESP 18; TEMP 97.8; O2SAT 93
[2024-02-02] MEDS: ACETAMINOPHEN 325 MG TAB PO PRN (02:11)
[2024-02-02 05:00] VITALS: BP 125/66; PULSE 56; RESP 17; TEMP 97.8; O2SAT 91
[2024-02-02 07:22] LABS: Basophils # (auto) 0 10 ^3/uL (0-0.2); Basophils % (auto) 0.6 % (0.0-2.0); Eosinophils # (auto) 0.3 10 ^3/uL (0-0.8); Eosinophils % (auto) 4.8 % (0.0-7.0); Hematocrit 42.2 % (36.0-46.0); Hemoglobin 14.2 g/dL (12.2-16.2); Lymphocytes # (auto) 2.2 10 ^3/uL (0.4-5.4); Lymphocytes % (auto) 35.6 % (10.0-50.0); Mean Corpuscular Hemoglobin 31.8 pg (28.0-32.0); Mean Corpuscular Hgb Conc. 33.7 g/dL (32.0-36.0); Mean Corpuscular Volume 94.2 fL (80.0-100.0); Monocytes # (auto) 0.6 10 ^3/uL (0-1.3); Neutrophils # (auto) 3.1 10 ^3/uL (1.6-8.6); Nucleated Red Blood Cells % 0.1 %; Red Blood Cells 4.48 10^6/uL (4.0-5.20); Red Cell Distribution Width 13.1 % (11.8-14.3); White Blood Cell 6.1 10^3/uL (4.4-10.8)
[2024-02-02 07:46] LABS: Alanine Aminotransferase 25 U/L (7-40); Albumin 3.8 g/dL (3.2-4.8); Alkaline Phosphatase 60 U/L (46-116); Anion Gap 3 (5-15); Aspartate Aminotransferase 15 U/L (13-40); BUN/Creatinine Ratio 17.6 (10.0-20.0); Blood Urea Nitrogen 13 mg/dL (9-23); Calcium 9.2 mg/dL (8.7-10.4); Carbon Dioxide 27 mmol/L (20-30); Chloride 109 mmol/L (98-107); Glucose 95 mg/dL (74-106); Potassium 4.1 mmol/L (3.5-5.1); Sodium 139 mmol/L (136-145)
[2024-02-02 07:47] LABS: Bilirubin, Total 0.6 mg/dL (0.2-1.0); Total Protein 5.7 g/dL (5.7-8.2)
[2024-02-02 08:00] VITALS: PULSE 64; RESP 18; O2SAT 93
[2024-02-02 09:00] VITALS: BP 130/67; PULSE 64; RESP 18; TEMP 98.5; O2SAT 93
[2024-02-02] MEDS ORDERED: ASPirin-EC 81 mg tab PO SCH (10:00)
[2024-02-02] MEDS: METOPROLOL SUCCINATE XL 50 MG TAB PO SCH (10:23)
[2024-02-02] MEDS: CITALOPRAM HYDROBR 20 MG TAB PO SCH (10:23)
[2024-02-02] MEDS: OXYBUTYNIN CHL 5 MG TAB PO SCH (10:24)
[2024-02-02] MEDS: ONDANSETRON HCL 4 MG/2 ML VIAL IV PRN (10:27)
[2024-02-02] MEDS: DexAMETHasone INJECTION 10 MG in D5W 5% 50 ML IV SCH (10:53)
[2024-02-02] MEDS: DOCUSATE SOD 100 MG CAP PO PRN (16:32)
[2024-02-02 17:00] VITALS: BP 139/63; PULSE 65; RESP 15; TEMP 97.6; O2SAT 95
[2024-02-02 21:00] VITALS: BP 138/64; PULSE 55; RESP 17; TEMP 98; O2SAT 94
[2024-02-03] MEDS: MORPHINE SULFATE INJ 2 MG/ml SYRG IV PRN (04:13)
[2024-02-03 05:00] VITALS: BP 135/67; PULSE 53; RESP 16; TEMP 98; O2SAT 96
[2024-02-03] MEDS: LORazepam 2MG/ML-1ML VIAL IV PRN (06:11)
[2024-02-03] MEDS: FLUoxetine HCL 10 MG CAP PO SCH (09:08)
[2024-02-03 09:59] VITALS: BP 129/54; PULSE 69; RESP 18; TEMP 98.4; O2SAT 93
[2024-02-03 14:45] VITALS: BP 128/61; PULSE 56; RESP 18; TEMP 97.8; O2SAT 95
[2024-02-03 17:42] VITALS: BP 116/62; PULSE 67; RESP 18; TEMP 98.3; O2SAT 93
[2024-02-03 21:00] VITALS: BP 130/61; PULSE 68; RESP 18; TEMP 98.4; O2SAT 94
[2024-02-04 01:00] VITALS: BP 122/59; PULSE 52; RESP 16; TEMP 98.5; O2SAT 94
[2024-02-04 05:00] VITALS: BP 139/65; PULSE 50; RESP 18; TEMP 98.6; O2SAT 95
[2024-02-04] MEDS ORDERED: FLUO20TA36 PO (08:56)
[2024-02-04 10:15] VITALS: BP 140/68; PULSE 53; RESP 17; TEMP 97.9; O2SAT 95
[2024-02-04 13:45] LABS: Hepatitis B Surface Antibody Negative (Negative)
[2024-02-04 14:19] LABS: Hepatitis C Antibody Negative (Negative)
[2024-02-04 14:29] VITALS: BP 136/62; PULSE 58; RESP 18; TEMP 97.8; O2SAT 95
== END 2024-02-04 15:14 | disposition home or self-care (01) | DRG 78 ==
LOC: ER 07:49 → EDBD 07:49 → OVERFLOW 14:05 → CENTRAL 14:58
PROVIDERS: ADMIT Nurse Practitioner Family; ATTEND Family Medicine
PROC: 30233R1 Transfusion of Nonautologous Platelets into Peripheral Vein, Percutaneous Approach (ICD-10-PCS; principal; 2024-02-01)
DX: I67.4 Hypertensive encephalopathy (principal); F33.1 Major depressive disorder, recurrent, moderate; R45.851 Suicidal ideations; G44.40 Drug-induced headache, not elsewhere classified, not intractable; D69.6 Thrombocytopenia, unspecified; E78.00 Pure hypercholesterolemia, unspecified; F41.9 Anxiety disorder, unspecified; I10 Essential (primary) hypertension; J45.909 Unspecified asthma, uncomplicated; F10.20 Alcohol dependence, uncomplicated; M81.0 Age-related osteoporosis without current pathological fracture; Z79.899 Other long term (current) drug therapy; Z91.51 Personal history of suicidal behavior; Z86.73 Personal history of transient ischemic attack (TIA), and cerebral infarction without residual deficits; Z80.51 Family history of malignant neoplasm of kidney; Z90.710 Acquired absence of both cervix and uterus; Z88.3 Allergy status to other anti-infective agents; Z88.1 Allergy status to other antibiotic agents; Z85.43 Personal history of malignant neoplasm of ovary; Z85.42 Personal history of malignant neoplasm of other parts of uterus; Z88.2 Allergy status to sulfonamides
CPT/HCPCS: 36415; 70450; 70551; 80048; 80053; 80320; 81001; 82607; 82746; 83735; 85025; 85027; 86706; 86803; 86850; 86900; 86901; 93005; G0378; J1100; J2405; J7060